=== PATIENT | female | born 1940 ===

== ENCOUNTER 2023-05-11 14:08 | Emergency (ER) | payer MEDICARE, BC ==
[~2023-05-11 14:08] MED LIST: Iopamidol 300 61% 100 ML VIAL FS ONE
[2023-05-11 15:24] LABS: ALT (SGPT) 11 U/L (8-55); AST (SGOT) 15 U/L (5-34); Albumin 3.6 g/dL (3.4-4.8); Alkaline Phosphatase 72 U/L (40-110); Anion Gap 10 mmol/L (10-20); BUN (Urea Nitrogen) 18 mg/dL (9.8-20.1); Bilirubin, Total 0.2 mg/dL (0.2-1.2); Calc. Creatinine Clearance 0 mL/min (70-130); Calcium 9.2 mg/dL (7.8-10.44); Carbon Dioxide 29 mmol/L (23-31); Chloride 105 mmol/L (98-107); Estimated GFR 52; Globulin 2.2 g/dL (2.4-3.5); Glucose 98 mg/dL (83-110); Potassium 4.4 mmol/L (3.5-5.1); Protein, Total 5.8 g/dL (5.8-8.1); Sodium 140 mmol/L (136-145)
[2023-05-11 15:28] LABS: #Basophils 0.1 10x3/uL (0.0-0.2); #Eosinphils 0.1 10x3/uL (0.0-0.5); #Monocytes 0.4 10x3/uL (0.0-1.1); #Neutrophils 4.2 10x3/uL (1.5-8.4); %Basophils 1.1 % (0.0-2.0); %Eosinophils 1.8 % (0.0-6.0); %Lymphocytes 21.8 % (18.0-47.0); %Monocytes 6.8 % (0.0-10.0); %Neutrophils 68.3 % (40.0-75.0); Hematocrit 42.2 % (34.9-44.5); Hemoglobin 13.7 g/dL (12.0-15.5); Mean Corpuscular HGB CONC 32.5 g/dL (32.0-36.0); Mean Corpuscular Hemoglobin 28.5 pg (27.0-33.0); Mean Corpuscular Volume 87.9 fl (81.6-98.3); Mean Platelet Volume 10.1 fl (7.4-10.4); Platelet Count 208 10x3/uL (150-450); White Blood Cell (WBC) Count 6.2 10x3/uL (3.5-10.5)
== END 2023-05-11 17:00 | disposition home or self-care (01) ==
LOC: CSHERS 14:08
DX: S09.90XA Unspecified injury of head, initial encounter (principal); N18.9 Chronic kidney disease, unspecified; W17.89XA Other fall from one level to another, initial encounter
CPT/HCPCS: 70450; 71260; 72125; 74177; 80053; 83735; 85025; Q9967